=== PATIENT | male | born 1960 | race Caucasian/White ===

== ENCOUNTER 2016-06-01 17:47 | Emergency (ER) | payer BC ==
[2016-06-01 18:06] VITALS: TEMP 98.3
--- NOTE | 2016-06-01 18:39 | ED ---
Psych HPI - General Chief Complaint: Psychiatric Symptoms Stated Complaint: SUICIDAL Time Seen by Provider: 06/01/16 18:34 Source: patient, RN notes reviewed Mode of arrival: ambulatory - History of Present Illness Initial Comments: Is a 56-year-old male history depression and anxiety who states he is feeling very anxious and depressed he has considered overdosing on his medications and not wanting to get up. MD Complaint: suicidal ideation, feels depressed, other - Related Data Home Medications Medication Instructions Recorded Confirmed Warfarin [Coumadin] 5 mg PO DAILY 10/31/13 06/01/16 Allergies Allergy/AdvReac Type Severity Reaction Status Date / Time No Known Allergies Allergy Verified 06/01/16 18:43 Review of Systems ROS Statement: Those systems with pertinent positive or pertinent negative responses have been documented in the HPI. ROS Other: All systems not noted in ROS Statement are negative. Past Medical History Past Medical History: Liver Disease History of Any Multi-Drug Resistant Organisms: None Reported Additional Past Surgical History / Comment(s): STATES HAS HAD "LIVER BYPASS" Past Anesthesia/Blood Transfusion Reactions: No Reported Reaction Past Psychological History: Anxiety, Depression, Panic Disorder Smoking Status: Current every day smoker Past Alcohol Use History: Daily Past Drug Use History: None Reported General Exam - General Exam Comments Initial Comments: This is a well-developed well-nourished awake alert anxious appearing male Limitations: no limitations General appearance: alert, in no apparent distress Head exam: Present: atraumatic, normocephalic, normal inspection Eye exam: Present: normal appearance, PERRL, EOMI. Absent: scleral icterus, conjunctival injection, periorbital swelling ENT exam: Present: normal exam, mucous membranes moist Neck exam: Present: normal inspection. Absent: tenderness, meningismus, lymphadenopathy Respiratory exam: Present: normal lung sounds bilaterally. Absent: respiratory distress, wheezes, rales, rhonchi, stridor Cardiovascular Exam: Present: regular rate, normal rhythm, normal heart sounds. Absent: systolic murmur, diastolic murmur, rubs, gallop, clicks GI/Abdominal exam: Present: soft, normal bowel sounds. Absent: distended, tenderness, guarding, rebound, rigid Extremities exam: Present: normal inspection, full ROM, normal capillary refill. Absent: tenderness, pedal edema, joint swelling, calf tenderness Back exam: Present: normal inspection Neurological exam: Present: alert, oriented X3, CN II-XII intact Psychiatric exam: Present: depressed, anxious, flat affect, suicidal ideation Skin exam: Present: warm, dry, intact, normal color. Absent: rash Course Vital Signs 06/01/16 18:02 Temperature 98.3 F Pulse Rate 105 H Respiratory 18 Rate Blood Pressure 146/71 O2 Sat by Pulse 99 Oximetry Medical Decision Making - Medical Decision Making I did discuss the findings with the patient. He states he is not suicidal he states that he stated that an error he promises not to hurt himself he was just feeling very anxious at the time - Lab Data Lab Results 06/01/16 Range/Units 18:40 Urine Opiates Screen Not Detected (NotDetected) Ur Oxycodone Screen Not Detected (NotDetected) Urine Methadone Screen Not Detected (NotDetected) Ur Propoxyphene Screen Not Detected (NotDetected) Ur Barbiturates Screen Not Detected (NotDetected) U Tricyclic Antidepress Not Detected (NotDetected) Ur Phencyclidine Scrn Not Detected (NotDetected) Ur Amphetamines Screen Not Detected (NotDetected) U Methamphetamines Scrn Not Detected (NotDetected) U Benzodiazepines Scrn Not Detected (NotDetected) Urine Cocaine Screen Not Detected (NotDetected) U Marijuana (THC) Screen Detected H (NotDetected) Disposition Clinical Impression: Adjustment reaction, Acute anxiety Disposition: HOME SELF-CARE Condition: Good Instructions: Anxiety (ED)
[2016-06-01 19:35] VITALS: BP 152/74; PULSE 80; RESP 16
== END 2016-06-01 19:34 | disposition home or self-care (01) ==
LOC: EC 17:47
DX: F43.22 Adjustment disorder with anxiety (principal); F32.9 Major depressive disorder, single episode, unspecified; F41.0 Panic disorder [episodic paroxysmal anxiety]; F17.200 Nicotine dependence, unspecified, uncomplicated; Z79.01 Long term (current) use of anticoagulants
CPT/HCPCS: 80306; 82075; 99284

== ENCOUNTER 2016-06-03 00:19 | Emergency (ER) | payer BC ==
--- NOTE | 2016-06-03 00:53 | ED ---
Anxiety HPI - General Source: patient, RN notes reviewed Mode of arrival: ambulatory <Merline Terrell - Last Filed: 06/03/16 04:06> <Syed Garcia - Last Filed: 06/03/16 06:40> - General Chief Complaint: Anxiety Stated Complaint: anxiety Time Seen by Provider: 06/03/16 00:35 - History of Present Illness Initial Comments: Patient is a 56-year-old male presents emergency room for evaluation of anxiety. Patient states he's been dealing with anxiety and depression for the past year. Patient states over the past few nights he has not been able to sleep and has been pacing back and forth in his room. Patient states he is feeling very anxious. Patient denies suicidal or homicidal thoughts. Patient does state he drinks alcohol. Patient states he has a history of alcohol abuse and has liver failure as a result. Patient states he takes Coumadin since he has a shunt placed in his liver. Patient states he was recently placed on Celexa. Patient states Celexa is not helping his symptoms. Patient denies chest pain, shortness of breath, headache or dizziness. Patient's sister is present with patient. Patient's sister states that she is very worried about patient wants patient evaluated by psych. Patient's sister states that patient works at a [employer] and is worried that patient may harm himself. Patient 's sister states that patient lives alone. Patient denies visual or auditory hallucinations. Patient denies illicit drug use. (Merline Terrell) - Related Data Home Medications: Home Medications Medication Instructions Recorded Confirmed Warfarin [Coumadin] 5 mg PO DAILY 10/31/13 06/01/16 Allergies/Adverse Reactions: Allergies Allergy/AdvReac Type Severity Reaction Status Date / Time No Known Allergies Allergy Verified 06/03/16 00:25 Review of Systems ROS Other: All systems not noted in ROS Statement are negative. <Merline Terrell - Last Filed: 06/03/16 04:06> ROS Other: All systems not noted in ROS Statement are negative. <Syed Garcia - Last Filed: 06/03/16 06:40> ROS Statement: Those systems with pertinent positive or pertinent negative responses have been documented in the HPI. Past Medical History Past Medical History: Liver Disease History of Any Multi-Drug Resistant Organisms: None Reported Additional Past Surgical History / Comment(s): STATES HAS HAD "LIVER BYPASS", espphogeal varicies. Past Anesthesia/Blood Transfusion Reactions: No Reported Reaction Past Psychological History: Anxiety, Depression, Panic Disorder Smoking Status: Current every day smoker Past Alcohol Use History: Daily Past Drug Use History: None Reported <Merline Terrell - Last Filed: 06/03/16 04:06> General Exam Limitations: no limitations General appearance: alert, anxious Head exam: Present: atraumatic, normocephalic, normal inspection Eye exam: Present: normal appearance ENT exam: Present: normal exam Neck exam: Present: normal inspection Respiratory exam: Present: normal lung sounds bilaterally. Absent: respiratory distress Cardiovascular Exam: Present: regular rate, normal rhythm, normal heart sounds Extremities exam: Present: normal inspection Back exam: Present: normal inspection Neurological exam: Present: alert, oriented X3, CN II-XII intact, normal gait Psychiatric exam: Present: normal affect, anxious Skin exam: Present: warm, dry, intact, normal color. Absent: rash <Merline Terrell - Last Filed: 06/03/16 04:06> <Syed Garcia - Last Filed: 06/03/16 06:40> - General Exam Comments Initial Comments: Sitting in exam room, no acute distress. (Merline Terrell) Course <Merline Terrell - Last Filed: 06/03/16 04:06> <Syed Garcia - Last Filed: 06/03/16 06:40> Vital Signs 06/03/16 00:22 Temperature 97.5 F L Pulse Rate 71 Respiratory 20 Rate Blood Pressure 143/67 O2 Sat by Pulse 99 Oximetry - Reevaluation(s) Reevaluation #1: 06/03/16 05:35 I did complete a clinical certification on this patient he is resting comfortably throughout the morning. 06/03/16 06:10 The patient will be endorsed to Dr. Pena at our shift change the patient is currently pending disposition. (Syed Garcia) Reevaluation #2: 06/03/16 06:40 The patient will be transferred to the [facility] for inpatient psychiatric care. (Syed Garcia) Medical Decision Making - Lab Data Result diagrams: 06/03/16 03:10 06/03/16 03:10 <Merline Terrell - Last Filed: 06/03/16 04:06> - Lab Data Result diagrams: 06/03/16 03:10 06/03/16 03:10 <Syed Garcia - Last Filed: 06/03/16 06:40> - Medical Decision Making Patient is a 56-year-old male presents emergency room for evaluation of anxiety and depression. Patient is medically cleared to be evaluated by psych. Patient evaluated by psych and does admit the admission criteria. However, there are no available beds so patient will be transferred for psychiatric workup. (Merline Terrell) - Lab Data Lab Results 06/03/16 06/03/16 06/03/16 Range/Units 00:59 03:10 03:10 WBC 6.1 (3.8-10.6) k/uL RBC 4.52 (4.30-5.90) m/uL Hgb 15.5 (13.0-17.5) gm/dL Hct 42.6 (39.0-53.0) % MCV 94.1 (80.0-100.0) fL MCH 34.2 (25.0-35.0) pg MCHC 36.4 (31.0-37.0) g/dL RDW 15.2 (11.5-15.5) % Plt Count 64 L (150-450) k/uL Neutrophils % 72 % Lymphocytes % 15 % Monocytes % 7 % Eosinophils % 3 % Basophils % 1 % Neutrophils # 4.6 (1.3-7.7) k/uL Lymphocytes # 1.0 (1.0-4.8) k/uL Monocytes # 0.5 (0-1.0) k/uL Eosinophils # 0.2 (0-0.7) k/uL Basophils # 0.1 (0-0.2) k/uL Manual Slide Review Performed Hyperchromasia Slight Poikilocytosis Slight Sodium 138 (137-145) mmol/L Potassium 3.5 (3.5-5.1) mmol/L Chloride 102 (98-107) mmol/L Carbon Dioxide 29 (22-30) mmol/L Anion Gap 7 mmol/L BUN 5 L (9-20) mg/dL Creatinine 0.70 (0.66-1.25) mg/dL Est GFR (MDRD) Af Amer >60 (>60 ml/min/1.73 sqM) Est GFR (MDRD) Non-Af >60 (>60 ml/min/1.73 sqM) Glucose 84 (74-99) mg/dL Calcium 8.7 (8.4-10.2) mg/dL Total Bilirubin 4.9 H (0.2-1.3) mg/dL AST 28 (17-59) U/L ALT 31 (21-72) U/L Alkaline Phosphatase 71 (38-126) U/L Total Protein 6.3 (6.3-8.2) g/dL Albumin 3.4 L (3.5-5.0) g/dL Urine Opiates Screen Not Detected (NotDetected) Ur Oxycodone Screen Not Detected (NotDetected) Urine Methadone Screen Not Detected (NotDetected) Ur Propoxyphene Screen Not Detected (NotDetected) Ur Barbiturates Screen Not Detected (NotDetected) U Tricyclic Antidepress Not Detected (NotDetected) Ur Phencyclidine Scrn Not Detected (NotDetected) Ur Amphetamines Screen Not Detected (NotDetected) U Methamphetamines Scrn Not Detected (NotDetected) U Benzodiazepines Scrn Not Detected (NotDetected) Urine Cocaine Screen Not Detected (NotDetected) U Marijuana (THC) Screen Detected H (NotDetected) Disposition Time of Disposition: 04:10 <Merline Terrell - Last Filed: 06/03/16 04:06> - Out of Hospital Transfer - Req. Specs Out of Hospital Transfer - Requested Specifics: Psychiatric Non-ICU <Syed Garcia - Last Filed: 06/03/16 06:40> Clinical Impression: Anxiety, Depression, Suicidal ideation Disposition: TRANSFER TO PSYCH HOSP/UNIT Instructions: Generalized Anxiety Disorder (ED) Referrals: Velasquez Swanson DO [Primary Care Provider] - 1-2 days
[2016-06-03] MEDS ORDERED: LORazepam 1 MG TAB PO STA (02:15)
[2016-06-03 03:29] LABS: CH 35.4; CHCM 37.9; HCT 42.6 % (39.0-53.0); HDW 3.77; HGB 15.5 gm/dL (13.0-17.5); MCH 34.2 pg (25.0-35.0); MCHC 36.4 g/dL (31.0-37.0); MCV 94.1 fL (80.0-100.0); Mean Platelet Volume 7.3; RBC 4.52 m/uL (4.30-5.90); RDW 15.2 % (11.5-15.5); WBC 6.1 k/uL (3.8-10.6); WBC (Perox) 6.11
[2016-06-03 03:35] LABS: Basophils # (A) 0.1 k/uL (0-0.2); Basophils % (A) 1 %; Eosinophils # (A) 0.2 k/uL (0-0.7); Eosinophils % (A) 3 %; Hyperchromasia Slight; Luc # (Auto) 0.12; Luc % (Auto) 2; Lymphocytes % (A) 15 %; Monocytes # (A) 0.5 k/uL (0-1.0); Monocytes % (A) 7 %; Neutrophils # (A) 4.6 k/uL (1.3-7.7); Neutrophils % (A) 72 %; Poikilocytosis Slight
[2016-06-03 03:36] LABS: ALT 31 U/L (21-72); AST 28 U/L (17-59); Alkaline Phosphatase 71 U/L (38-126); Anion Gap 7 mmol/L; Blood Urea Nitrogen 5 mg/dL (9-20); Calcium 8.7 mg/dL (8.4-10.2); Carbon Dioxide 29 mmol/L (22-30); Chloride 102 mmol/L (98-107); Glucose 84 mg/dL (74-99); Non-African American GFR(MDRD) >60 (>60 ml/min/1.73 sqM); Potassium 3.5 mmol/L (3.5-5.1); Sodium 138 mmol/L (137-145); Total Bilirubin 4.9 mg/dL (0.2-1.3); Total Protein 6.3 g/dL (6.3-8.2)
[2016-06-03 04:17] LABS: Manual Review Performed
[2016-06-03 07:47] VITALS: BP 149/72; PULSE 83; RESP 18; TEMP 97.9
== END 2016-06-03 07:47 ==
LOC: EC 00:19
DX: F32.9 Major depressive disorder, single episode, unspecified (principal); F41.0 Panic disorder [episodic paroxysmal anxiety]; R45.851 Suicidal ideations; F17.200 Nicotine dependence, unspecified, uncomplicated; Z79.01 Long term (current) use of anticoagulants
CPT/HCPCS: 36415; 80053; 80306; 82075; 85025; 99284

== ENCOUNTER 2018-04-07 18:57 | Emergency (ER) | payer BC, OTHER ==
[2018-04-07 19:07] VITALS: TEMP 97.7
[2018-04-07] MEDS ORDERED: DIPH,PERTUS(ACELL)TETVAC-LF 0.5 ML VIAL IM ONE (19:13)
--- NOTE | 2018-04-07 19:37 | ED ---
General Adult HPI - General Chief complaint: Head Injury Stated complaint: HEAD INJURY Time Seen by Provider: 04/07/18 19:10 Source: patient Mode of arrival: ambulatory Limitations: no limitations - History of Present Illness Initial comments: Dictation was produced using [email or web address] dictation software. please excuse any grammatical, word or spelling errors. Chief Complaint: Patient is a 58-year-old male past medical history of anticoagulation for liver shunt presents with head injury from work. History of Present Illness: Patient's 58-year-old presents with head injury. 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 He states that one of the pieces of metal swung back and hit him in the forehead. States that he did not lose consciousness. Patient is on Coumadin for liver shown from chronic liver disease. Patient denies any headache at this time. He suffered a laceration to his anterior forehead. Patient has no other complaints at this time. Does not remember when his last tetanus was The ROS documented in this emergency department record has been reviewed and confirmed by me. Those systems with pertinent positive or negative responses have been documented in the HPI. All other systems are other negative and/or noncontributory. PHYSICAL EXAM: General Impression: Alert and oriented x3, not in acute distress HEENT: Normocephalic, extra-ocular movements intact, pupils equal and reactive to light bilaterally, mucous membranes moist. Cardiovascular: Heart regular rate and rhythm, S1&S2 audible, no murmurs, rubs or gallops Chest: Lungs clear to auscultation bilaterally, no rhonchi, no wheeze, no rales Abdomen: Bowel sounds present, abdomen soft, non-tender, non-distended, no organomegaly Musculoskeletal: Pulses present and equal in all extremities, no peripheral edema Motor: Power 5/5 bilaterally, no focal deficits noted Neurological: CN II-XII grossly intact, no focal motor or sensory deficits noted Skin: 2 cm laceration over the right forehead, wound approximates well, laceration is linear, active hemorrhage at this time Psych: Normal affect and mood ED course: 58-year-old male presents with head injury. On arrival are within acceptable limits. Patient's tetanus was updated. Laceration was repaired using Steri-Strips. Patient's wound approximates well. CT is unremarkable. INR is 2.1. Patient clinically stable. Patient be discharged. - Related Data Home Medications Medication Instructions Recorded Confirmed Warfarin [Coumadin] 5 mg PO DAILY 10/31/13 04/07/18 Allergies Allergy/AdvReac Type Severity Reaction Status Date / Time No Known Allergies Allergy Verified 04/07/18 19:10 Review of Systems ROS Statement: Those systems with pertinent positive or pertinent negative responses have been documented in the HPI. ROS Other: All systems not noted in ROS Statement are negative. Past Medical History Past Medical History: Liver Disease History of Any Multi-Drug Resistant Organisms: None Reported Additional Past Surgical History / Comment(s): STATES HAS HAD "LIVER BYPASS", espphogeal varicies. Past Anesthesia/Blood Transfusion Reactions: No Reported Reaction Past Psychological History: Anxiety, Depression, Panic Disorder Smoking Status: Current every day smoker Past Alcohol Use History: None Reported, Daily Past Drug Use History: None Reported General Exam Limitations: no limitations Course Vital Signs 04/07/18 19:03 Temperature 97.7 F Pulse Rate 70 Respiratory 18 Rate Blood Pressure 126/75 O2 Sat by Pulse 98 Oximetry Procedures - Laceration Laceration #1 Consent Obtained: verbal consent, written consent Indication: laceration Site: scalp Description: linear Depth: simple, single layer Pre-repair: deep structures intact Type of Sutures: other Patient Tolerated Procedure: well Medical Decision Making - Lab Data Lab Results 04/07/18 Range/Units 19:30 PT 21.3 H (9.0-12.0) sec INR 2.2 H (<1.2) Disposition Clinical Impression: Closed head injury, Forehead laceration Disposition: HOME SELF-CARE Condition: Good Instructions (If sedation given, give patient instructions): Laceration (DC) Is patient prescribed a controlled substance at d/c from ED?: No Referrals: Velasquez Swanson DO [Primary Care Provider] - 1-2 days Time of Disposition: 21:03
[2018-04-07 19:42] LABS: INR 2.2 (<1.2); Prothrombin Time 21.3 sec (9.0-12.0)
--- NOTE | 2018-04-07 19:55 | CT ---
EXAMINATION TYPE: CT brain wo con DATE OF EXAM: 04/07/2018 COMPARISON: None HISTORY: hit in head by steel coil. Injury to RT yazidi. CT DLP: 1140.4 mGycm Automated exposure control for dose reduction was used. FINDINGS: There is minimal cerebral atrophy. There is no mass effect nor midline shift. There is no sign of int racranial hemorrhage. Calvarium is intact. There is small right frontal scalp soft tissue swelling. I see no fracture. IMPRESSION: MILD SOFT TISSUE SWELLING. NO ACUTE INTRACRANIAL ABNORMALITY.
[2018-04-07 21:11] VITALS: BP 103/59; PULSE 61; RESP 16
== END 2018-04-07 21:16 | disposition home or self-care (01) ==
LOC: EC 18:57
DX: S01.81XA Laceration without foreign body of other part of head, initial encounter (principal); R79.1 Abnormal coagulation profile; K76.9 Liver disease, unspecified; F17.200 Nicotine dependence, unspecified, uncomplicated; Z23 Encounter for immunization; Z96.89 Presence of other specified functional implants; Z79.01 Long term (current) use of anticoagulants; W22.8XXA Striking against or struck by other objects, initial encounter; Y93.89 Activity, other specified; Y92.69 Other specified industrial and construction area as the place of occurrence of the external cause; Y99.0 Civilian activity done for income or pay
CPT/HCPCS: 36415; 70450; 85610; 90471; 90715; 99284

== ENCOUNTER → 2018-09-08 | Outpatient (CLI) | payer OTHER ==
--- NOTE | 2018-09-08 16:05 | XR ---
Right shoulder HISTORY: Right shoulder pain 3 views of the right shoulder Acromion is downturned. Acromioclavicular joint shows some mild hypertrophic change. Alignment is karley ntained. No fracture or dislocation. Right lung apex as visualized is normal. IMPRESSION: No acute abnormality. Correlate for impingement.
== END | disposition home or self-care (01) ==
LOC: RADXRYALE 14:49
PROVIDERS: ATTEND Physician Assistant Medical
DX: M25.511 Pain in right shoulder (principal)

== ENCOUNTER 2020-09-16 17:40 | Emergency (ER) | payer OTHER ==
[2020-09-16] MEDS ORDERED: LIDOCAINE 1%-EPI 1:100,000 20 ML VIAL SQ STA (18:02)
[2020-09-16] MEDS ORDERED: BACITRACIN OINT 1 EACH PACKET TOPICAL ONE (18:02)
[2020-09-16 18:35] LABS: Basophils % (A) 0 %; Eosinophils # (A) 0.2 k/uL (0-0.7); Eosinophils % (A) 4 %; HCT 41.8 % (39.0-53.0); HGB 15.5 gm/dL (13.0-17.5); Hyperchromasia Moderate; Lymphocytes # (A) 0.8 k/uL (1.0-4.8); Lymphocytes % (A) 16 %; MCH 35.1 pg (25.0-35.0); MCV 94.9 fL (80.0-100.0); Mean Platelet Volume 7.8; Monocytes # (A) 0.4 k/uL (0-1.0); Monocytes % (A) 7 %; Neutrophils # (A) 3.8 k/uL (1.3-7.7); Neutrophils % (A) 71 %; Platelet Count 104 k/uL (150-450); Poikilocytosis Slight; RBC 4.41 m/uL (4.30-5.90); RDW 14.7 % (11.5-15.5); WBC 5.3 k/uL (3.8-10.6)
[2020-09-16 18:39] LABS: Partial Thromboplastin Time 33.6 sec (22.0-30.0); Prothrombin Time 19.4 sec (9.0-12.0)
--- NOTE | 2020-09-16 18:51 | ED ---
Wound/Laceration HPI - General Chief Complaint: Wound/Laceration Stated Complaint: head lac Time Seen by Provider: 09/16/20 17:45 Source: patient Mode of arrival: wheelchair Limitations: no limitations - History of Present Illness Initial Comments: 60 year-old male patient presents to the emergency department for evaluation of laceration to the right forehead. Patient states he is [employer] his shed, states he walked into a piece of sheet metal, states he did not hit his head very hard but it is very sharp. Patient states that the wound was bleeding profusely. States he lost a lot of blood. He does take coumadin, states last INR was therapeutic one week ago. Reports pain to the area. Denies headache, blurred vision, double vision, nausea, or vomiting. Denies any other wounds or injuries. - Related Data Home Medications Medication Instructions Recorded Confirmed Warfarin [Coumadin] 5 mg PO DAILY 10/31/13 09/16/20 Levothyroxine Sodium [Synthroid] 50 mcg PO DAILY 09/16/20 09/16/20 Allergies Allergy/AdvReac Type Severity Reaction Status Date / Time No Known Allergies Allergy Verified 09/16/20 19:05 Review of Systems ROS Statement: Those systems with pertinent positive or pertinent negative responses have been documented in the HPI. ROS Other: All systems not noted in ROS Statement are negative. Past Medical History Past Medical History: Liver Disease History of Any Multi-Drug Resistant Organisms: None Reported Additional Past Surgical History / Comment(s): STATES HAS HAD "LIVER BYPASS", espphogeal varicies. Past Anesthesia/Blood Transfusion Reactions: No Reported Reaction Past Psychological History: Anxiety, Depression, Panic Disorder Smoking Status: Current every day smoker Past Alcohol Use History: None Reported, Daily Past Drug Use History: None Reported General Exam Limitations: no limitations General appearance: alert, in no apparent distress, other (Physical well- developed, well-nourished adult male patient in no acute distress. Vital signs upon presentation temperature 98.2F, pulse 96, respirations 17, blood pressure 136/86, pulse ox 96% on room air.) Head exam: Present: other (There is a 7 cm laceration to the right forehead with evidence for arterial bleeding.) Eye exam: Present: normal appearance, PERRL, EOMI. Absent: scleral icterus, conjunctival injection, nystagmus, periorbital swelling ENT exam: Present: normal exam, normal oropharynx, mucous membranes moist Respiratory exam: Present: normal lung sounds bilaterally. Absent: respiratory distress, wheezes, rales, rhonchi, stridor Cardiovascular Exam: Present: regular rate, normal rhythm, normal heart sounds. Absent: systolic murmur, diastolic murmur, rubs, gallop, clicks Neurological exam: Present: alert, oriented X3, CN II-XII intact Psychiatric exam: Present: normal affect, normal mood Skin exam: Present: warm, dry, intact, normal color. Absent: rash Course Vital Signs 09/16/20 09/16/20 17:51 19:14 Temperature 98 F 98.1 F Pulse Rate 96 86 Respiratory 17 16 Rate Blood Pressure 136/86 131/73 O2 Sat by Pulse 96 97 Oximetry Procedures - Laceration Laceration #1 Consent Obtained: verbal consent Indication: laceration Site: other (forehead) Size (cm): 7 Description: linear Depth: simple, single layer, arterial injury Anesthetic Used: lidocaine 1%, with epi Anesthesia Technique: local infiltration Amount (mls): 8 Pre-repair: irrigated extensively Type of Sutures: nylon (9), vicryl (2) Size of Sutures: 5-0 Technique: simple, interrupted Patient Tolerated Procedure: well, no complications Medical Decision Making - Medical Decision Making 60 year-old male patient presents to the emergency department for evaluation of forehead laceration. Physical exam revealed 7cm laceration with evidence of arterial bleed. Pressure was held. Injected wound with 1% lidocaine with epinephrine. Arterial bleed was tied off. Bleeding ceased. Laceration was repaired. Labs reviewed, INR 2.0. Hemoglobin normal. We discussed wound care, signs or symptoms of infection, suture removal. Discharge to follow-up with his primary care physician for recheck in 1-2 days. Return parameters were discussed in detail. He verbalizes understanding and agrees with this plan. Case discussed with my attending Dr. Horn. - Lab Data Result diagrams: 09/16/20 18:17 Lab Results 09/16/20 09/16/20 Range/Units 18:17 18:17 WBC 5.3 (3.8-10.6) k/uL RBC 4.41 (4.30-5.90) m/uL Hgb 15.5 (13.0-17.5) gm/dL Hct 41.8 (39.0-53.0) % MCV 94.9 (80.0-100.0) fL MCH 35.1 H (25.0-35.0) pg MCHC 37.0 (31.0-37.0) g/dL RDW 14.7 (11.5-15.5) % Plt Count 104 L (150-450) k/uL MPV 7.8 Neutrophils % 71 % Lymphocytes % 16 % Monocytes % 7 % Eosinophils % 4 % Basophils % 0 % Neutrophils # 3.8 (1.3-7.7) k/uL Lymphocytes # 0.8 L (1.0-4.8) k/uL Monocytes # 0.4 (0-1.0) k/uL Eosinophils # 0.2 (0-0.7) k/uL Basophils # 0.0 (0-0.2) k/uL Hyperchromasia Moderate Poikilocytosis Slight PT 19.4 H (9.0-12.0) sec INR 2.0 H (<1.2) APTT 33.6 H (22.0-30.0) sec Disposition Clinical Impression: Forehead laceration Disposition: HOME SELF-CARE Condition: Good Instructions (If sedation given, give patient instructions): Care For Your Stitches (ED), Laceration (ED) Additional Instructions: Keep wound clean and dry. Cleanse twice daily with warm water and antibacterial soap. If wound starts to bleed hold pressure for at least 20 minutes, if bleeding continues to present here nearest emergency department for further evaluation. Follow-up through primary care physician for recheck in 1-2 days. Return in 5 days to have the stitches removed. Return for any new, worsening, or concerning symptoms. Is patient prescribed a controlled substance at d/c from ED?: No Referrals: Velasquez Swanson DO [Primary Care Provider] - 1-2 days Time of Disposition: 18:51
[2020-09-16 19:16] VITALS: BP 131/73; PULSE 86; RESP 16; TEMP 98.1
== END 2020-09-16 19:16 | disposition home or self-care (01) ==
LOC: EC 17:40
DX: S01.81XA Laceration without foreign body of other part of head, initial encounter (principal); F17.200 Nicotine dependence, unspecified, uncomplicated; Z79.01 Long term (current) use of anticoagulants; Z79.890 Hormone replacement therapy; W26.8XXA Contact with other sharp object(s), not elsewhere classified, initial encounter
CPT/HCPCS: 12014; 36415; 85025; 85610; 85730; 99283

== ENCOUNTER 2020-09-17 11:28 | Emergency (ER) | payer OTHER ==
[2020-09-17 11:52] VITALS: BP 130/79; PULSE 71; RESP 16; TEMP 98
--- NOTE | 2020-09-17 12:45 | ED ---
General Adult HPI - General Chief complaint: Recheck/Abnormal Lab/Rx Stated complaint: revisit - suture site swelling Time Seen by Provider: 09/17/20 12:07 Source: patient, RN notes reviewed Mode of arrival: ambulatory Limitations: no limitations - History of Present Illness Initial comments: 60-year-old male presents emergency Department with chief complaint of bleeding from his suture site. Patient had a laceration in which she cut his head on a piece of sheet metal. Patient states that he did not run into its states there is a injury. He states that he did not lose conscious. Patient lab work which is unremarkable. Patient states that he has some discomfort slightly otherwise no other headache or dizziness. No blurred vision no nausea vomiting. - Related Data Home Medications Medication Instructions Recorded Confirmed Warfarin [Coumadin] 5 mg PO DAILY 10/31/13 09/16/20 Levothyroxine Sodium [Synthroid] 50 mcg PO DAILY 09/16/20 09/16/20 Allergies Allergy/AdvReac Type Severity Reaction Status Date / Time No Known Allergies Allergy Verified 09/17/20 11:49 Review of Systems ROS Statement: Those systems with pertinent positive or pertinent negative responses have been documented in the HPI. ROS Other: All systems not noted in ROS Statement are negative. Past Medical History Past Medical History: Liver Disease History of Any Multi-Drug Resistant Organisms: None Reported Additional Past Surgical History / Comment(s): STATES HAS HAD "LIVER BYPASS", espphogeal varicies. Past Anesthesia/Blood Transfusion Reactions: No Reported Reaction Past Psychological History: Anxiety, Depression, Panic Disorder Smoking Status: Current every day smoker Past Alcohol Use History: None Reported, Daily Past Drug Use History: None Reported General Exam Limitations: no limitations General appearance: alert, in no apparent distress Head exam: Present: atraumatic, normocephalic. Absent: normal inspection (Sutures in place and forehead no active bleeding there is mild swelling minimal tenderness) Eye exam: Present: normal appearance, PERRL, EOMI. Absent: scleral icterus, conjunctival injection, periorbital swelling ENT exam: Present: normal exam, mucous membranes moist Neck exam: Present: normal inspection, full ROM. Absent: tenderness, meningismus, lymphadenopathy Respiratory exam: Present: normal lung sounds bilaterally. Absent: respiratory distress, wheezes, rales, rhonchi, stridor Cardiovascular Exam: Present: regular rate, normal rhythm, normal heart sounds. Absent: systolic murmur, diastolic murmur, rubs, gallop, clicks Neurological exam: Present: alert, oriented X3, CN II-XII intact, reflexes normal. Absent: motor sensory deficit Course Vital Signs 09/17/20 11:49 Temperature 98 F Pulse Rate 71 Respiratory 16 Rate Blood Pressure 130/79 O2 Sat by Pulse 94 L Oximetry Medical Decision Making - Medical Decision Making Patient has no active bleeding. Patient offered CT but is increasing pain and head injury patient refuses understand wrist. Patient we discharged at this time advised that he may have some bleeding from his suture site. Disposition Clinical Impression: Forehead laceration, Bleeding from wound Disposition: HOME SELF-CARE Condition: Stable Instructions (If sedation given, give patient instructions): Laceration (ED) Additional Instructions: Please return to the Emergency Department if symptoms worsen or any other concerns. Is patient prescribed a controlled substance at d/c from ED?: No Referrals: Velasquez Swanson DO [Primary Care Provider] - 1-2 days Time of Disposition: 12:45
== END 2020-09-17 12:55 | disposition home or self-care (01) ==
LOC: EC 11:28
DX: S01.81XA Laceration without foreign body of other part of head, initial encounter (principal); L76.22 Postprocedural hemorrhage of skin and subcutaneous tissue following other procedure; F17.200 Nicotine dependence, unspecified, uncomplicated; Z79.01 Long term (current) use of anticoagulants; Z79.890 Hormone replacement therapy; W26.8XXA Contact with other sharp object(s), not elsewhere classified, initial encounter
CPT/HCPCS: 99283

== ENCOUNTER 2021-02-20 23:01 | Emergency (ER) | payer OTHER ==
[2021-02-20 23:15] VITALS: BP 139/70; PULSE 89; RESP 20; TEMP 98
[2021-02-21] MEDS ORDERED: LIDOCAINE 1%-EPI 1:100,000 20 ML VIAL SQ STA (00:48)
[2021-02-21] MEDS ORDERED: BACITRACIN OINT 1 EACH PACKET TOPICAL ONE (00:48)
--- NOTE | 2021-02-21 01:34 | ED ---
Wound/Laceration HPI - General Chief Complaint: Wound/Laceration Stated Complaint: Hand Laceration, [facility] Time Seen by Provider: 02/21/21 00:38 Source: patient Mode of arrival: ambulatory Limitations: no limitations - History of Present Illness Initial Comments: 61-year-old male patient presents to the emergency department today for evaluation of right hand laceration that occurred at work. Physical examination did reveal a 4 cm laceration to the dorsal aspect of the right hand. He does take Coumadin. States he immediately applied pressure and a dressing. States his tetanus vaccine is up-to-date within the last 5 years. Denies any significant pain. Denies numbness or tingling to the hand. Denies any difficulty with range of motion. Denies any other injuries or concerns. - Related Data Home Medications Medication Instructions Recorded Confirmed Warfarin [Coumadin] 5 mg PO DAILY 10/31/13 09/16/20 Levothyroxine Sodium [Synthroid] 50 mcg PO DAILY 09/16/20 09/16/20 Allergies Allergy/AdvReac Type Severity Reaction Status Date / Time No Known Allergies Allergy Verified 02/20/21 23:12 Review of Systems ROS Statement: Those systems with pertinent positive or pertinent negative responses have been documented in the HPI. ROS Other: All systems not noted in ROS Statement are negative. Past Medical History Past Medical History: Liver Disease History of Any Multi-Drug Resistant Organisms: None Reported Additional Past Surgical History / Comment(s): STATES HAS HAD "LIVER BYPASS", espphogeal varicies. Past Anesthesia/Blood Transfusion Reactions: No Reported Reaction Past Psychological History: Anxiety, Depression, Panic Disorder Smoking Status: Current every day smoker Past Alcohol Use History: None Reported, Occasional Past Drug Use History: None Reported General Exam Limitations: no limitations General appearance: alert, in no apparent distress, other (This is a well- developed, well-nourished adult male in no acute distress.) ENT exam: Present: normal exam, normal oropharynx, mucous membranes moist Respiratory exam: Present: normal lung sounds bilaterally. Absent: respiratory distress, wheezes, rales, rhonchi, stridor Cardiovascular Exam: Present: regular rate, normal rhythm, normal heart sounds. Absent: systolic murmur, diastolic murmur, rubs, gallop, clicks Extremities exam: Present: full ROM, normal capillary refill, other (Worsening renal laceration noted to the dorsal aspect of the right hand. No active bleeding noted. Skin is otherwise pink, warm, dry. Cap refill less than 3 seconds. Full range of motion is intact. Radial, medial, ulnar nerve intact.). Absent: tenderness, pedal edema, joint swelling, calf tenderness Neurological exam: Present: alert, oriented X3, CN II-XII intact Psychiatric exam: Present: normal affect, normal mood Skin exam: Present: warm, dry, intact, normal color. Absent: rash Course Vital Signs 02/20/21 23:12 Temperature 98.0 F Pulse Rate 89 Respiratory 20 Rate Blood Pressure 139/70 O2 Sat by Pulse 99 Oximetry Procedures - Laceration Laceration #1 Consent Obtained: verbal consent Indication: laceration Site: hand (right) Size (cm): 4 Description: linear Depth: simple, single layer Anesthetic Used: lidocaine 1%, with epi Anesthesia Technique: local infiltration Amount (mls): 4 Type of Sutures: nylon Size of Sutures: 5-0 Number of Sutures: 4 Technique: simple, interrupted Patient Tolerated Procedure: well, no complications Medical Decision Making - Medical Decision Making 61-year-old male patient presents for evaluation of laceration to the right hand. Physical examination does reveal 4 cm laceration. This was repaired as documented. He had full range of motion, neurovascular status is intact. He is educated regarding wound care, signs or symptoms of infection. He is instructed to have sutures removed in 7 days. Return parameters were discussed in detail. He verbalizes understanding and agrees with this plan. My attending is Dr. Adamson. Disposition Clinical Impression: Laceration of hand, right Disposition: HOME SELF-CARE Condition: Good Instructions (If sedation given, give patient instructions): Care For Your Stitches (ED), Laceration (ED) Additional Instructions: Keep wound clean and dry. Cleanse twice daily with warm water and antibacterial soap. Have stitches removed in 7 days. Follow-up with primary care physician for recheck in 1-2 days. Return for any new, worsening, or concerning symptoms. Is patient prescribed a controlled substance at d/c from ED?: No Referrals: Velasquez Swanson DO [Primary Care Provider] - 1-2 days Time of Disposition: 01:34
== END 2021-02-21 02:06 | disposition home or self-care (01) ==
LOC: EC 23:01
DX: S61.411A Laceration without foreign body of right hand, initial encounter (principal); F17.200 Nicotine dependence, unspecified, uncomplicated; Z79.01 Long term (current) use of anticoagulants; Z79.890 Hormone replacement therapy; W26.8XXA Contact with other sharp object(s), not elsewhere classified, initial encounter; Y99.0 Civilian activity done for income or pay
CPT/HCPCS: 12002; 99282